=== PATIENT | female | born 1955 | race Caucasian/White ===

== ENCOUNTER 2021-12-05 08:36 | Outpatient (CLI) | payer OTHER | END 2021-12-05 14:12 | disposition home or self-care (01) | LOC: MRI 08:36 | PROVIDERS: ATTEND Obstetrics & Gynecology Gynecology | DX: D27.0 Benign neoplasm of right ovary (principal); N85.00 Endometrial hyperplasia, unspecified | CPT/HCPCS: 72196 ==

== ENCOUNTER 2023-01-11 05:50 | Day surgery (SDC) | payer OTHER ==
[~2023-01-11] VITALS: Ht 162.6 cm; Wt 62.1 kg
[~2023-01-11 05:50] MED LIST: ZIAC PO
[2023-01-11] MEDS ORDERED: IBU600 MG PO (08:37)
== END 2023-01-11 14:45 | disposition home or self-care (01) ==
LOC: CIR.AMB 05:50
PROVIDERS: ATTEND Obstetrics & Gynecology Gynecology
DX: N84.0 Polyp of corpus uteri (principal); N84.1 Polyp of cervix uteri; Z20.822 Contact with and (suspected) exposure to COVID-19